=== PATIENT | male | born 1985 | race Caucasian/White ===

== ENCOUNTER 2020-02-21 16:03 | Outpatient (CLI) | payer BC | END 2020-02-21 16:30 | disposition home or self-care (01) | LOC: SLEEP 16:03 | PROVIDERS: ATTEND Otolaryngology Otolaryngology/Facial Plastic Surgery | DX: G47.33 Obstructive sleep apnea (adult) (pediatric) (principal); G47.10 Hypersomnia, unspecified; R22.1 Localized swelling, mass and lump, neck ==